=== PATIENT | female | born 1990 | race American Indian/Alaskan Native ===

== ENCOUNTER 2020-05-02 20:43 | Emergency (ER) | payer OTHER, SELFPAY ==
[2020-05-02 20:52] VITALS: BP 134/97; PULSE 80; RESP 18; TEMP 36.3; O2SAT 96
--- NOTE | 2020-05-02 21:00 | DI.RAD.S_ITS ---
PROCEDURE: XR FOOT LT MIN 3V INDICATIONS: rammed foot into wall TECHNIQUE: 3 views of the foot were acquired. COMPARISON: None. FINDINGS: Bones: No fractures or dislocations. No suspicious bony lesions. Soft tissues: No tibiotalar joint effusion. Achilles tendon appears normal. IMPRESSION: No acute osseous abnormality. Dictated by: Mikey Callahan M.D. on 05/02/2020 at 21:50 Approved by: Mikey Callahan M.D. on 05/02/2020 at 21:51
--- NOTE | 2020-05-02 22:56 | ED.LOWEXIN ---
HPI - Extremity Injury (Lower) General Chief Complaint: Extremity Injury, Lower Stated Complaint: thinks her left foot is broke Time Seen by Provider: 05/02/20 21:26 Source: patient Mode of arrival: Wheelchair Limitations: no limitations History of Present Illness HPI Narrative: 29-year-old female smoker without chronic medical problems presents with a chief complaint of some left lateral foot pain after an injury this evening. She was riding a scooter in her new house with concrete floors and steel door is when it got out from under her and her left foot forcefully slid forward into the door. She now has pain with palpation and ambulation of her lateral foot, minimal ecchymosis is noted. No abrasions or lacerations. MD complaint: foot injury Onset (ago): hour(s) Type of Injury: blunt Place: home Severity: moderate Relieving factors: rest Exacerbating factors: weight bearing, movement and palpation Context: fall and direct blow Associated symptoms: swelling Other symptoms: none Treatments prior to arrival: NSAIDS Review of Systems Constitutional Constitutional: Denies chills, Denies fatigue, Denies fever(s), Denies frequent falls, Denies lethargy and Denies weakness Eyes Eyes: Denies change in vision, Denies eye discharge, Denies irritation and Denies loss of vision ENT Ears, Nose, Mouth, and Throat: Denies change in voice, Denies dizziness, Denies neck pain, Denies sore throat and Denies throat swelling Cardiovascular Cardiovascular: Denies chest pain, Denies irregular heart rhythm, Denies lightheadedness, Denies palpitations, Denies dyspnea, Denies dyspnea on exertion and Denies orthopnea Respiratory Respiratory: Denies cough, Denies dyspnea, Denies dyspnea on exertion and Denies wheezing Gastrointestinal Gastrointestinal: Denies abdominal pain, Denies change in bowel habits, Denies diarrhea, Denies nausea and Denies vomiting Musculoskeletal Musculoskeletal: Denies neck pain and Denies numbness Integumentary/Breasts Skin/Breast: Denies pruritus, Denies erythema, Denies rash and Denies wounds Neurologic Neurologic: Denies behavioral changes, Denies confusion, Denies dizziness, Denies frequent falls, Denies loss of vision, Denies numbness and Denies weakness Psychiatric Psychiatric: Denies anxiety, Denies behavioral changes, Denies confusion, Denies depression, Denies homicidal ideation and Denies suicidal ideation Endocrine Endocrine: Denies fatigue, Denies flushing and Denies palpitations Hematologic/Lymphatic Hematologic/Lymphatic: Denies easy bruising Allergic/Immunologic Allergic/Immunologic: Denies urticaria, Denies throat swelling and Denies wheezing Patient History Social History Smoking Status: Current some day smoker Smoking Status: Current some day smoker alcohol intake frequency: a few times a month Substance Use Type: marijuana Exam Narrative Exam Narrative: GEN: AOx3 and in mild distress EYES: Pupils are equal, round, and reactive to light and accommodation. Extraoccular muscles are intact bilaterally. There is no subconjunctival hemorrhage or exudate. CHEST: Lungs are clear to auscultation bilaterally and free of wheezes, rales, or rhonchi. Heart rate is regular rhythm, there are no murmurs, clicks, rubs, or gallops. There is no chest wall tenderness. ABD: Abdomen is soft and nontender. There is no guarding or rebound. Bowel sounds are normal in all 4 quadrants. There is no mass or organomegaly. EXT: Left foot and ankle surgeon to palpation over dorsalateral aspect of foot. Closed, isolated and NV intact. No obvious deformity. SKIN: Warm, pink, and dry. No erythema or rash Initial Vital Signs Initial Vital Signs: Vital Signs Temperature 97.3 F L 05/02/20 20:52 Pulse Rate 80 05/02/20 20:52 Respiratory Rate 18 05/02/20 20:52 Blood Pressure 134/97 H 05/02/20 20:52 Pulse Oximetry 96 05/02/20 20:52 Procedures Orthopedic Splinting/Casting Injury #1: Side: left Lower Extremity Injury Location: foot Lower Extremity Immobilizer: post-op shoe Post splinting neuro exam: intact Post splinting vascular exam: intact Placed by: Nursing Course Orders Ordered: Discontinued Medications Acetaminophen (Tylenol) 650 mg PO NOW ONE Stop: 05/02/20 23:03 Last Admin: 05/02/20 23:13 Dose: 650 mg Documented by: CLOTILDE Vital Signs Vital signs: Vital Signs - 8 hr 05/02/20 20:52 Temperature 97.3 F L Pulse Rate 80 Respiratory Rate 18 Blood Pressure 134/97 H Pulse Oximetry 96 MDM - Extremity Injury (Lower) Imaging Data Extremity x-ray #1: Radiologist's Impression: Vale,Maricel N 29 F 1990 [address] [address] XRay Report Signed Patient: Maricel Collazo NMR#: [id number] : 1990Acct:[id number] Age/Sex: 29 / FDate of Service: 05/02/20 Loc: ED Accession Number: [id number] Procedure: XR foot LT min 3V Ordering Provider: Franklin Hopkins D.O. PROCEDURE: XR FOOT LT MIN 3V INDICATIONS: rammed foot into wall TECHNIQUE: 3 views of the foot were acquired. COMPARISON: None. FINDINGS: Bones: No fractures or dislocations. No suspicious bony lesions. Soft tissues: No tibiotalar joint effusion. Achilles tendon appears normal. IMPRESSION: No acute osseous abnormality. Dictated by: Mikey Callahan M.D. on 05/02/2020 at 21:50 Approved by: Mikey Callahan M.D. on 05/02/2020 at 21:51 Discharge Plan Departure Patient Disposition: Home Clinical Impression: Contusion of foot Qualifiers: Encounter type: initial encounter Laterality: left Qualified Code(s): S90.32XA - Contusion of left foot, initial encounter Discharge Date/Time: 05/02/20 23:26 Instructions: DI for Contusion Activity Restrictions/Additional Instructions: *You have been diagnosed with [acute left foot contusion, no fracture or dislocation noted on x-ray] *What to do: *Take medications as directed *Follow up with your primary care provider in 2-3 days, call for an appointment. Let them know you were seen in the Emergency Department and that we ask that you be seen in follow up *Return to ER if you should have any new, worsening or concerning symptoms
[2020-05-02] MEDS: ACETAMINOPHEN 325 MG TABLET 650 MG PO (23:13)
[2020-05-02 23:25] VITALS: BP 129/78; PULSE 68; RESP 18; O2SAT 100
== END 2020-05-02 23:26 | disposition home or self-care (01) ==
PROVIDERS: Emergency Provider Emergency Medicine
DX: S90.32XA Contusion of left foot, initial encounter (principal); W22.8XXA Striking against or struck by other objects, initial encounter
CPT/HCPCS: 73630; 99283; 99284

== ENCOUNTER 2023-06-19 22:56 | Emergency (ER) | payer OTHER, SELFPAY ==
[2023-06-19 22:59] VITALS: BP 139/92; PULSE 81; RESP 20; TEMP 37.4; O2SAT 96; BMI 29.2
--- NOTE | 2023-06-19 23:18 | DI.CT.S_ITS ---
PROCEDURE: CT HEAD/BRAIN WO CON INDICATIONS: fall with head/neck complaints TECHNIQUE: Noncontrast 4.5 mm thick angled axial sections acquired from the foramen magnum to the vertex, with coronal and sagittal reformats. For radiation dose reduction, the following was used: automated exposure control, adjustment of mA and/or kV according to patient size. COMPARISON: None. FINDINGS: Image quality: Excellent. CSF spaces: Basal cisterns are patent. No extra-axial fluid collections. Ventricles are normal in size and shape. Brain: No intracranial hemorrhage, mass, or mass effect. Javed-white matter interface appears preserved. Skull and face: Calvarium and visualized facial bones are intact, without suspicious lesions. Sinuses: Visualized sinuses and mastoids are clear. IMPRESSION: 1. No acute intracranial abnormality. Dictated by: Sahil Heaton M.D. on 06/20/2023 at 0:17 Approved by: Sahil Heaton M.D. on 06/20/2023 at 0:18
--- NOTE | 2023-06-19 23:18 | DI.CT.S_ITS ---
PROCEDURE: CT CERVICAL SPINE WO CON INDICATIONS: fall on trampoline with neck pain TECHNIQUE: Noncontrast 3 mm thick sections acquired from the skull base to the T4 level. Sagittal and coronal reformats were then constructed. For radiation dose reduction, the following was used: automated exposure control, adjustment of mA and/or kV according to patient size. COMPARISON: None. FINDINGS: Image quality: Excellent. Bones: No fractures or subluxation. Visualized superior ribs are intact. Soft tissues: Prevertebral soft tissues are normal in thickness. No paravertebral hematomas. No apical pneumothoraces. IMPRESSION: 1. No fracture or subluxation Dictated by: Sahil Heaton M.D. on 06/20/2023 at 0:18 Approved by: Sahil Heaton M.D. on 06/20/2023 at 0:19
--- NOTE | 2023-06-19 23:38 | PC.NURSE ---
Cervical collar applied in triage. Pt tolerated well.
[2023-06-19 23:46] VITALS: BP 143/100
[2023-06-19 23:48] VITALS: BP 156/97; PULSE 81; O2SAT 97
[2023-06-20] VITALS (7 sets, daily range): BP systolic 123–137; BP diastolic 82–84; PULSE 54–83; O2SAT 91–97
[2023-06-20] MEDS: ONDANSETRON 4 MG ODT SL (00:55)
--- NOTE | 2023-06-20 01:24 | ED.NECK ---
HPI - Neck Pain/Injury General Chief Complaint: Neck Pain/Injury Stated Complaint: Hit head, vision issues, vomiting, trampoline Time Seen by Provider: 06/19/23 23:18 Mode of arrival: Ambulatory History of Present Illness HPI Narrative: 32F smoker and occasional drinker presents with family in the chief complaint of head injury with a few episodes of vomiting and some left-sided neck and jaw pain. She had a few drinks tonight and was bouncing on a trampoline. She was curled up in a ball being bounced by a friend and she fell awkwardly and her head fell back into the trampoline. She denies loss of consciousness and has full recall of the event. She denies any numbness, tingling or weakness of her extremities. She has no chest pain or shortness of breath. She states that she has pain any popping or clicking sensation at the left side of her jaw near her ear. She denies any drainage of fluid, bleeding or other. Related Data Previous Rx's Medication Instructions Recorded cyclobenzaprine 10 mg tablet 10 mg PO TID PRN muscle spasm #14 06/20/23 tabs ketorolac 10 mg tablet 10 mg PO Q6H PRN pain #14 tabs 06/20/23 Allergies Allergy/AdvReac Type Severity Reaction Status Date / Time amoxicillin Allergy Swelling Verified 06/19/23 23:07 of Lip/Tongue/Throat Review of Systems Review of Systems Narrative: GENERAL: Denies chills, fatigue, malaise, fever, sweats. HEENT: Denies sinus pain, ear pain, sore throat, difficulty swallowing, dizziness. RESPIRATORY: Denies dyspnea, cough, wheezing, hemoptysis, sputum. CARDIOVASCULAR: Denies chest pain, palpitations, orthopnea, edema, GASTROINTESTINAL: See HPI : Denies dysuria, frequency, incontinence, hematuria, urinary retention. MUSCULOSKELETAL: See HPI SKIN: Denies rash, skin lesions, or other NEUROLOGIC: Denies weakness, headache, numbness, change in speech, confusion, seizures, incoordination. PSYCHIATRIC: No concerning psychosocial issues. 12 point review of systems is negative except for those stated above Patient History Social History Smoking Status: Current some day smoker Smoking Status: Current some day smoker alcohol intake frequency: a few times a month Substance Use Type: marijuana Exam Narrative Exam Narrative: GENERAL: [32] year old patient appears stated age. Well-developed patient, in mild distress. GCS 15 HEAD: Atraumatic. Normocephalic. No abrasion, contusion or laceration, no evidence of depressed skull fracture EYES: Pupils equal round and reactive. No hyphema Extraocular motions intact. No scleral icterus. No injection or drainage. ENT: Nose without bleeding, purulent drainage. Throat without erythema, tonsillar hypertrophy or exudate. Airway patent. When opening and closing her jaw she feels a popping sensation at her left temporomandibular joint, she has a negative popsicle bite test. NECK: Trachea midline. Minimal tenderness in the left-sided paraspinal musculature CARDIOVASCULAR: Regular rate and rhythm without murmurs, gallops, or rubs. RESPIRATORY: Clear to auscultation. Breath sounds equal bilaterally. No wheezes, rales, or rhonchi. GASTROINTESTINAL: Abdomen soft, non-tender, nondistended. EXTREMITIES: No edema or joint tenderness. BACK: Nontender without deformity or crepitance. No flank tenderness. NEURO: AOx3. SKIN: No rash or erythema of visible areas Initial Vital Signs Initial Vital Signs: Vital Signs Temperature 99.4 F 06/19/23 22:59 Pulse Rate 81 06/19/23 22:59 Respiratory Rate 20 06/19/23 22:59 Blood Pressure 139/92 H 06/19/23 22:59 Pulse Oximetry 96 06/19/23 22:59 Oxygen Delivery Method Room Air 06/19/23 22:59 Course Orders Ordered: ED Orders 06/19/23 23:18 CT cervical spine wo con Stat CT head/brain wo con Stat Discontinued Medications Ondansetron HCl (Ondansetron 4 Mg Odt) 4 mg SL NOW ONE Stop: 06/20/23 00:47 Last Admin: 06/20/23 00:55 Dose: 4 mg Documented By: ЕКАТЕРИНА Ondansetron HCl (Ondansetron 4 Mg Odt Prepack) 1 bottle MISC SEEINSTR ONE Stop: 06/20/23 01:37 Vital Signs Vital signs: Vital Signs - 8 hr 06/19/23 22:59 06/19/23 23:46 06/19/23 23:48 Temperature 99.4 F Pulse Rate 81 Respiratory Rate 20 Blood Pressure 139/92 H 143/100 H 156/97 H Pulse Oximetry 96 Oxygen Delivery Method Room Air 06/19/23 23:48 06/20/23 00:00 06/20/23 00:01 Temperature Pulse Rate 81 74 Respiratory Rate Blood Pressure 137/82 Pulse Oximetry 97 96 Oxygen Delivery Method Room Air 06/20/23 00:01 06/20/23 00:15 06/20/23 00:15 Temperature Pulse Rate 78 83 Respiratory Rate Blood Pressure 127/84 Pulse Oximetry 96 97 Oxygen Delivery Method 06/20/23 00:39 06/20/23 01:00 Temperature Pulse Rate 78 73 Respiratory Rate Blood Pressure Pulse Oximetry 91 95 Oxygen Delivery Method Room Air MDM - Neck Pain/Injury MDM Narrative Medical decision making narrative: [32] year old patient presents with neck, head, jaw pain after trampoline accident Multiple etiologies for patient's symptoms considered including, but not limited to: [Concussion versus intracranial hemorrhage versus cervical fracture versus temporomandibular joint dysfunction versus stroke fracture versus other] Prior Charts reviewed in our EMR Primary Historian: patient Imaging reviewed: Head and C-spine imaging absence of signs of fracture, dislocation or intracranial hemorrhage Patient with reassuring history and physical exam, imaging absent of any significant abnormalities. Left-sided jaw pain most consistent with temporomandibular joint dysfunction as she has popping and clicking in the region of the TMJ, negative popsicle bite test. No intraoral injuries. Patient's symptoms improved over duration of stay with above-stated therapies. Findings and discharge diagnosis discussed with patient/family followed by verbalization of understanding Return precautions discussed with patient/family whom verbalize understanding of diagnosis and plan Discharge Plan Departure Patient Disposition: Home Clinical Impression: Strain of neck muscle, TMJ arthralgia, Concussion Instructions: Neck Sprain Activity Restrictions/Additional Instructions: *You have been diagnosed with [whiplash injury and temporomandibular joint dysfunction. As we discussed your history and physical exam as well as CT scans are reassuring and there is no evidence of fracture, dislocation, bleeding issues] *What to do: *Please continue to take your regular medications as directed. [x ] New medication prescriptions sent to your pharmacy: [ [facility]] [ ] New medication written as a paper prescription [ ] No new medications given *Please follow up with your primary care provider in 2-3 days, call for an appointment. Let them know you were seen in the Emergency Department and that we ask that you be seen in follow up. We will electronically transmit a record of today's note if your PCP is in our system *If you do not have a primary care provider please contact the [facility] Resource line at [phone]. They will ask some questions about your medical history and help get you set up with a doctor in the community. *Return to Emergency Department if you should have any new, worsening or concerning symptoms, such as [fever greater than 101 F, shaking chills, worsening pain, persistent vomiting or other bothersome symptoms] Prescriptions: New cyclobenzaprine 10 mg tablet 10 mg PO TID PRN (Reason: muscle spasm) Qty: 14 0RF ketorolac 10 mg tablet 10 mg PO Q6H PRN (Reason: pain) Qty: 14 0RF Stand Alone Forms: Patient Portal/API
[2023-06-20] MEDS: ONDANSETRON 4 MG ODT PREPACK 1 BOTTLE MISC (01:47)
== END 2023-06-20 01:52 | disposition home or self-care (01) ==
PROVIDERS: Emergency Provider Emergency Medicine
DX: S06.0X0A Concussion without loss of consciousness, initial encounter (principal); S16.1XXA Strain of muscle, fascia and tendon at neck level, initial encounter; M26.622 Arthralgia of left temporomandibular joint; R11.10 Vomiting, unspecified; W51.XXXA Accidental striking against or bumped into by another person, initial encounter
CPT/HCPCS: 70450; 72125; 99284